=== PATIENT | female | born 1950 ===

== ENCOUNTER 2017-07-06 09:48 | Outpatient (CLI) | payer MEDICARE ==
--- NOTE | 2017-07-06 11:38 | RAD ---
RIGHT KNEE FOUR VIEWS: HISTORY: Right knee pain. FINDINGS: Degenerative changes are seen, manifested by osteophyte formation and joint space narrowing. No acut e fracture-dislocation or bony destruction is identified. IMPRESSION: Right knee osteoarthritis. POS: [facility]
== END 2017-07-06 09:49 | disposition home or self-care (01) ==
LOC: MADRAD 09:48
PROVIDERS: ATTEND Obstetrics & Gynecology
DX: M25.561 Pain in right knee (principal); M17.11 Unilateral primary osteoarthritis, right knee